=== PATIENT | male | born 1960 | race Native Hawaiian/Other Pacific Islander ===

== ENCOUNTER 2022-01-15 19:00 | Emergency (ER) | payer OTHER ==
[~2022-01-15] VITALS: Ht 137.2 cm; Wt 40.4 kg
[2022-01-15 19:50] LABS: PLATELET COUNT 314 K/uL (142-355)
[2022-01-15 19:55] LABS: POTASSIUM 3.3 mmol/L (3.6-5.2)
[2022-01-15 20:25] VITALS: TEMP 98.1
[2022-01-15 21:07] VITALS: BP 147/96
[2022-01-15] MEDS ORDERED: AMLODIPINE BESYLATE PO (21:37)
[2022-01-15] MEDS ORDERED: ROWEEPRA500 MG PO (21:39)
[2022-01-15] MEDS ORDERED: OMEPRAZOLE DR20 MG PO (21:39)
[2022-01-15] MEDS ORDERED: MAALOX ADVAN PO (21:41)
== END 2022-01-15 21:11 | disposition still patient (30) ==
LOC: ED 19:00
PROVIDERS: Emergency Medicine
DX: R46.89 Other symptoms and signs involving appearance and behavior (principal); F25.8 Other schizoaffective disorders; Z11.52 Encounter for screening for COVID-19; Z04.6 Encounter for general psychiatric examination, requested by authority
CPT/HCPCS: 36415; 80053; 81002; 85008; 85027; 87635; 93005; 99283; U0003